=== PATIENT | male | born 2005 | race Two or more races ===

== ENCOUNTER 2023-06-30 07:26 | Day surgery (SDC) | payer OTHER ==
[2023-06-16 14:59] VITALS: BMI 23.3
[2023-06-30] MEDS ORDERED: MIDAZOLAM HCL 2 MG/2 ML SINGLE DOSE VIAL ONE (07:55)
[2023-06-30] MEDS ORDERED: LIDOCAINE HCL/PF 2% SDV 5ML VIAL ONE (07:55)
[2023-06-30] MEDS ORDERED: GUM MASTIC/STORAX/MSAL/ALCOHOL 1 DRP DROPSBTL MC ONE (08:22)
[2023-06-30] MEDS ORDERED: BUPIVACAINE HCL/PF 0.25% (2.5MG/ML) 10 ML VIAL ONE (08:22)
[2023-06-30] MEDS ORDERED: DEXAMETHASONE SOD PHOSPHATE 4 MG/1 ML VIAL ONE (08:42)
[2023-06-30] MEDS ORDERED: ceFAZolin SODIUM 1 GM VIAL ONE (08:42)
[2023-06-30] MEDS ORDERED: ONDANSETRON 4 MG/2 ML VIAL ONE (08:46)
[2023-06-30] MEDS ORDERED: KETOROLAC TROMETHAMINE 30 MG/1 ML VIAL ONE (08:46)
[2023-06-30] MEDS: BUPIVACAINE HCL/PF 0.25% (2.5MG/ML) 10 ML VIAL IJ ONE (09:38)
[2023-06-30] MEDS ORDERED: ONDANSETRON 4 MG/2 ML VIAL IVPUSH PRN (09:53)
[2023-06-30] MEDS ORDERED: oxyCODONE HCL 5 MG TABLET PO PRN ×2 (09:53)
[2023-06-30] MEDS ORDERED: PROMETHAZINE HCL 25 MG/1 ML VIAL IVPB PRN (09:53)
[2023-06-30] MEDS ORDERED: LACTATED RINGERS SOLUTION 1,000 ML IV SCH (10:00)
[2023-06-30] MEDS: ACETAMINOPHEN 1000 MG/100 ML BAG IVPB ONE (10:35)
[2023-06-30] MEDS ORDERED: FENTANYL CITRATE/PF 50 MCG/ML VIAL ONE (10:53)
[2023-06-30 11:34] VITALS: RESP 18
[2023-06-30 11:54] VITALS: BP 139/73; PULSE 68; TEMP 97.9
== END 2023-06-30 11:55 | disposition home or self-care (01) ==
LOC: FASU 07:26
PROVIDERS: ATTEND Orthopaedic Surgery Hand Surgery
PROC: 0LX80ZZ Transfer Left Hand Tendon, Open Approach (ICD-10-PCS; principal; 2023-06-30 08:50)
DX: S66.212A Strain of extensor muscle, fascia and tendon of left thumb at wrist and hand level, initial encounter (principal); X58.XXXA Exposure to other specified factors, initial encounter; Y92.9 Unspecified place or not applicable; Y93.9 Activity, unspecified
CPT/HCPCS: 94760; J0131